=== PATIENT | male | born 1970 | race Caucasian/White ===

== ENCOUNTER 2018-01-01 17:49 | Observation (INO) | payer OTHER, SELFPAY ==
[2018-01-01 18:46] LABS: #Eosinphils 0.1 thou/uL (0.0-0.7); #Lymphocytes 2.3 thou/uL (1.20-3.40); #Monocytes 0.8 thou/uL (0.11-0.59); #Neutrophils 7.8 thou/uL (1.40-6.50); %Basophils 0.3 % (0.0-1.0); %Eosinophils 0.7 % (0.0-10.0); %Monocytes 7.3 % (0.0-10.0); %Neutrophils 70.8 % (42.0-75.0); Hemoglobin 15.4 g/dL (14.0-18.0); Mean Corpuscular HGB CONC 33.7 g/dL (32.0-36.0); Mean Corpuscular Hemoglobin 31.1 pg (27.0-31.0); Mean Corpuscular Volume 92.3 fL (78.0-98.0); Platelet Count 160 thou/uL (130-400); Red Blood Cell (RBC) Count 4.95 mill/uL (4.70-6.10)
[2018-01-01 19:14] LABS: ALT (SGPT) 23 U/L (8-55); AST (SGOT) 16 U/L (5-34); Alkaline Phosphatase 76 U/L (40-150); Anion Gap 12 mmol/L (10-20); BUN (Urea Nitrogen) 8 mg/dL (8.9-20.6); Bilirubin, Total 0.6 mg/dL (0.2-1.2); CK (CPK) 120 U/L (30-200); Calc. Creatinine Clearance 0 mL/min (70-130); Calcium 9.2 mg/dL (7.8-10.44); Carbon Dioxide 22 mmol/L (22-29); Chloride 109 mmol/L (98-107); Estimated GFR-MDRD 90; Glucose 93 mg/dL (70-105); Lipase 12 U/L (8-78); Potassium 4.1 mmol/L (3.5-5.1); Sodium 139 mmol/L (136-145)
[2018-01-01 19:19] LABS: CKMB 0.9 ng/mL (0-6.6); Troponin I Less than 0.010 ng/mL (< 0.028)
--- NOTE | 2018-01-01 19:31 | RAD ---
AP VIEW OF THE CHEST: 01/01/18 INDICATION: Chest pain. COMPARISON: Prior exam dated 02/14/16. FINDINGS: Since the comparison examination there has been interval placement of an AICD. Cardiomegaly is stable . Lungs are clear. No pleural effusion or pneumothorax evident. No acute osseous abnormality is evide nt. IMPRESSION: 1. New AICD. 2. Stable cardiomegaly. POS: BH
[2018-01-01] MEDS ORDERED: HYDROcodone/Acetaminophen 5/325 mg Tablet ONE (19:33)
[2018-01-01 22:44] LABS: Troponin I Less than 0.010 ng/mL (< 0.028)
[2018-01-02] MEDS ORDERED: HYDROcodone/Acetaminophen 5/325 mg Tablet PO PRN (00:39)
[2018-01-02] MEDS ORDERED: Acetaminophen 325 MG TAB PO PRN ×2 (00:39→00:42)
[2018-01-02] MEDS ORDERED: Ondansetron ODT 4 MG TAB SL PRN (00:39)
[2018-01-02] MEDS ORDERED: Ondansetron HCl/PF 4 MG/2 ML Vial IVP PRN (00:39)
[2018-01-02] MEDS ORDERED: Milk Of Magnesia 30 ML UDCUP PO PRN (00:42)
[2018-01-02] MEDS ORDERED: hydrALAZINE 20 MG/ML VIAL SLOW IVP PRN (00:42)
[2018-01-02] MEDS ORDERED: Mag-Al 1200 mg/1200 mg/30 ML UDCUP PO PRN (00:42)
[2018-01-02 01:55] LABS: Troponin I 0.011 ng/mL (< 0.028)
[2018-01-02 01:59] VITALS: BMI 32.2
--- NOTE | 2018-01-02 04:27 | HP ---
PRIMARY CARE PHYSICIAN: Dr. Kuo. CHIEF COMPLAINT: Chest pain. HISTORY OF PRESENT ILLNESS: Mr. Hanks is a pleasant 47-year-old gentleman who has a history of c oronary artery disease, hypertension, and COPD. He was in his usual state of health until earlier to day. He says that he had been off his medications for close to a month now and he says that he start ed feeling a bit bad and so he decided better go ahead and take my medications. He says he took ever ything and then his chest started hurting shortly afterwards. He was not doing anything in particula r during this time, but says he had a pressure in the center of his chest that went down to his waist and into his abdomen as well as into his left arm. He also felt a bit dizzy and lightheaded. He ca lled the EMS and they came out to evaluate him and asked him if he could get onto the stretcher, he s aid he started to feel lightheaded and when he got onto the gurney and then once he sat down, he leslye giseles he passed out. They said his eyes rolled back into the back of his head and he says he does not remember any of this. He also felt a little bit nauseated, but otherwise no other complaints other than feeling a bit lightheaded and noticing some leg swelling over the past few months. Again, he ad mits not taking his medicines since 12/04. He says he basically forgot, but then started feeling b hema and decided not to take any more until just today. He also says he believes that his AICD may have been activated, but he is not very sure about this. The patient also denies any PND or orthopne a. REVIEW OF SYSTEMS: The review of all systems were reviewed and negative except as mentioned in the h istory of present illness. PAST MEDICAL HISTORY: Significant for coronary artery disease, C-spine disease, hypertension, COPD. PAST SURGICAL HISTORY: He has had a stent to the LAD back in 2016 as well as an AICD placed. ALLERGIES: No known drug allergies. SOCIAL HISTORY: He is , has 6 children. He smokes about 3 cigarettes a day. Denies any alco hol use. FAMILY HISTORY: Significant for cancer and heart disease. CURRENT MEDICATIONS: Include sertraline 100 mg 1-1/2 tablet daily, topiramate 200 mg 1/2 tablet kyung y, Lipitor 20 mg 1/2 tablet at bedtime, carvedilol 3.125 mg twice a day, lisinopril 5 mg daily, Plavi x 75 mg daily, furosemide 20 mg a day. PHYSICAL EXAMINATION: GENERAL: He is alert and oriented. He appears to be in no acute distress. VITAL SIGNS: Stable. Blood pressure was 111/77, heart rate 75, respiratory rate of 18, temperature is 98.5. HEENT: Pupils are equal, round, and reactive. Extraocular muscles are intact. Sclerae are anicteri c. Throat: No erythema, no exudates. NECK: No adenopathy, no bruits. LUNGS: Clear to auscultation. There is no wheezing, no rales. CARDIOVASCULAR: He has a normal S1, S2. I did not appreciate an S3 or S4. No murmurs, clicks, or r ubs. ABDOMEN: Soft, it is obese, it is nontender, nondistended. Positive for bowel sounds. There is no organomegaly. EXTREMITIES: He has got trace ankle edema. There is no calf tenderness. No warmth. He has got goo d dorsalis pedis pulses. NEUROLOGIC: The exam is grossly nonfocal with intact muscle strength throughout. SKIN AND INTEGUMENT: No skin changes. No rash. LABORATORY RESULTS: Sodium 139, potassium 4.1, chloride is 109, CO2 is 22, BUN of 8, creatinine 0.9, glucose is 93. White blood cell count is 11, hemoglobin 15.4, hematocrit is 45.7, platelet count is 160,000. X-RAY FINDINGS: On his EKG, it is sinus rhythm, the rate is 77. He had a Q-wave in V1 and aVL, poor R-wave progression in V1 through V3. ASSESSMENT AND PLAN: 1. This is a pleasant 47-year-old gentleman who presents to the emergency room with chest pain. The pain is different from his previous anginal equivalent. He says when he had his heart attack back i 2015, he actually did not have pain, but felt extremely angry. However, he has been off his medica tions. He continues to smoke and therefore is at risk. He will be placed in observation. We will c madi to trend his cardiac enzymes, place him on aspirin and nitrates and order a nuclear stress te st. We will also consult Cardiology since he has not seen a milk wagon driver in quite some time. 2. Chronic systolic heart failure. The patient has a history of heart failure with an automated imp lantable cardioverter defibrillator. He had an echo in 2015 with an EF of 20-25%. He appears to be clinically compensated. We will continue his usual medications and will also repeat an echo to asses s where his EF is at this time. 3. Hypertension. Blood pressure appears to be well controlled. We will continue his usual medicati ons including the lisinopril and carvedilol and further recommendations are to follow.
[2018-01-02 05:03] LABS: #Eosinphils 0.1 thou/uL (0.0-0.7); #Lymphocytes 3.6 thou/uL (1.20-3.40); #Monocytes 0.8 thou/uL (0.11-0.59); %Basophils 0.4 % (0.0-1.0); %Eosinophils 1.7 % (0.0-10.0); %Lymphocytes 41.5 % (21.0-51.0); %Monocytes 9.7 % (0.0-10.0); %Neutrophils 46.6 % (42.0-75.0); Hemoglobin 14.1 g/dL (14.0-18.0); Mean Corpuscular HGB CONC 33.9 g/dL (32.0-36.0); Mean Corpuscular Hemoglobin 31.2 pg (27.0-31.0); Mean Corpuscular Volume 91.9 fL (78.0-98.0); Mean Platelet Volume 8.3 fL (7.4-10.4); Platelet Count 164 thou/uL (130-400); Red Blood Cell (RBC) Count 4.51 mill/uL (4.70-6.10); White Blood Cell (WBC) Count 8.6 thou/uL (4.8-10.8)
[2018-01-02 05:16] LABS: Anion Gap 8 mmol/L (10-20); BUN (Urea Nitrogen) 12 mg/dL (8.9-20.6); Calc. Creatinine Clearance 152 mL/min (70-130); Calcium 8.9 mg/dL (7.8-10.44); Carbon Dioxide 24 mmol/L (22-29); Cardiac Risk 4.2 (Less than 4.5); Chloride 109 mmol/L (98-107); Cholesterol 110 mg/dl (< 200 Desired); Estimated GFR-MDRD Greater than 90; Glucose 100 mg/dL (70-105); HDL Cholesterol 26 mg/dL (>60 Neg Risk); LDL Cholesterol, Calculated 64 mg/dL; Potassium 3.9 mmol/L (3.5-5.1); Sodium 137 mmol/L (136-145); Triglycerides 100 mg/dL (Less than 150)
[2018-01-02] MEDS ORDERED: Nitroglycerin 2% Ointment 1 INCH/1 GM Packet TOP SCH (06:00)
[2018-01-02] MEDS ORDERED: Regadenoson 0.4 MG/5 ML SYRINGE ONE (07:44)
[2018-01-02] MEDS: Topiramate 100 MG TAB PO SCH (11:16)
[2018-01-02] MEDS: Clopidogrel Bisulfate 75 MG TAB PO SCH (11:16)
[2018-01-02] MEDS: Aspirin 325 MG TAB PO SCH (11:16)
--- NOTE | 2018-01-02 11:49 | NM ---
NUCLEAR MEDICINE MYOCARDIAL PERFUSION STUDY: Date: 01/02/18 COMPARISON: None. HISTORY: Chest pain. TECHNIQUE: SPECT imaging of the left ventricular myocardium is obtained during rest and stress following the int ravenous administration of 30.0 and 10.1 mCi technetium-99m labeled sestamibi, respectively. FINDINGS: There is prominent diffuse global hypokinesis of the left ventricle. TID is 1.04. EDV is 212 mL. ESV is 141 mL. Left ventricular ejection fraction is 34%. There are extensive fixed perfusion defects inv olving the distal aspect of the septum, the distal aspect of the anterior wall, and the cardiac apex, suggesting extensive prior infarction. No discrete reversible defect seen. IMPRESSION: Extensive prior infarction with global hypokinesis and left ventricular ejection fraction estimated a t 34%. No reversible defect seen. POS: KANU
[2018-01-02] MEDS: HYDROcodone/Acetaminophen 5/325 mg Tablet PO PRN ×2 (11:56→21:18)
--- NOTE | 2018-01-02 16:50 | CON ---
DATE OF CONSULTATION: 01/02/2018 HISTORY OF PRESENT ILLNESS: The patient is a 47-year-old gentleman with a history of cardiomyopathy who presented with chest pain after losing consciousness. The patient has a previous history of an ischemic cardiomyopathy. He suffered a myocardial infarction. In 2016, he underwent a cardiac catheterization and found to have severe disease in the LAD. He has subsequently underwent PTCA and stent placement into the mid LAD. The patient is found to have developed a marked decrease in left systolic function. He subsequently had placement of automatic implantable cardiac defibrillator. The patient has subsequently been treated with an PHYLLIS inhibitor therapy and Coreg. The patient has had difficulty with hypotension. He states that two weeks ago, that he stopped taking medication because he felt poorly. The patient discontinued all of his medications. He states that yesterday he decided that he would restart taking all his medications. Shortly within an hour, the patient became lightheaded and subsequently lost consciousness. He also reported substernal chest discomfort. The patient denies have any present chest discomfort or dyspnea. PAST MEDICAL HISTORY: 1. Coronary artery disease. 2. Cardiomyopathy. 3. Hypertension. 4. Dyslipidemia. PAST SURGICAL HISTORY: He has had AICD placement. SOCIAL HISTORY: Long history of tobacco abuse. ALLERGIES: None. MEDICATIONS: See nursing list, not taking regularly. REVIEW OF SYSTEMS: Ten point review of systems noticeable for anxiety. PHYSICAL EXAMINATION: GENERAL: Anxious gentleman in no acute distress. VITAL SIGNS: Blood pressure 116/65. NECK: No jugular venous distention. LUNGS: Clear to auscultation. HEART: Regular rate and rhythm, normal S1, S2, no murmurs. ABDOMEN: Nondistended. EXTREMITIES: Showed no edema. SKIN: Warm and dry. LABORATORY DATA AND IMAGING DATA: White blood count 8.6, hemoglobin 14.1, hematocrit 41.4 and his platelets were 164. Sodium 137, potassium 3.9, chloride 99, bicarbonate 24, BUN 12, creatinine is 0.84, troponin less than 0.01. His EKG revealed him to have normal sinus rhythm with Q-waves suggestive of previous anterior infarct. His Cardiolite stress test revealed moderate decreased left ventricular ejection fraction of 34% with anterior scar and no evidence of ischemia. IMPRESSION: 1. Syncope, probably due to hypotension. 2. Ischemic cardiomyopathy. 3. History of myocardial infarction. 4. History of noncompliance. This gentleman presented after losing consciousness after restarting his cardiac medications. At this time, would switch the patient's Entresto if he can tolerate this medication. Would recommend this as a long-term medication. We will follow this patient with you through his hospitalization. RINA
--- NOTE | 2018-01-02 17:48 | PDOC.PN ---
- Subjective Encounter Start Date: 01/02/18 Encounter Start Time: 18:06 Pt seen for followup re: chest pain. Reports chest pain is better. No nausea or vomiting. - Objective Resuscitation Status: Resuscitation Status FULL:Full Resuscitation Vital Signs & Weight: Vital Signs (12 hours) Temp Pulse Resp BP Pulse Ox 01/02/18 16:18 97.7 F 70 20 99/56 L 94 L 01/02/18 12:00 97.7 F 73 20 116/65 98 01/02/18 07:39 97.9 F 76 20 01/02/18 07:34 97.4 F L 64 20 95/53 L 97 Weight Weight 218 lb 6.4 oz I&O: 01/01/18 01/02/18 01/03/18 06:59 06:59 06:59 Intake Total 250 900 Balance 250 900 Result Diagrams: 01/02/18 04:24 01/02/18 04:24 Phys Exam - Physical Examination Obese HEENT: moist MMs, sclera anicteric, oral pharynx no lesions, 2+ tonsils Neck: no nodes, no JVD, supple, full ROM Respiratory: no wheezing, no rales, no rhonchi, clear to auscultation bilateral Cardiovascular: RRR, no rub S1, s2 Gastrointestinal: soft, non-tender, no distention, positive bowel sounds Musculoskeletal: no edema Neurological: moves all 4 limbs Psychiatric: normal affect, A&O x 3 Dx/Plan (1) Chest pain Code(s): R07.9 - CHEST PAIN, UNSPECIFIED Status: Acute Comment: Improved (2) CAD (coronary artery disease) Code(s): I25.10 - ATHSCL HEART DISEASE OF [place] CORONARY ARTERY W/O ANG PCTRS Status: Chronic Comment: stress test normal (3) CHF (congestive heart failure) Code(s): I50.9 - HEART FAILURE, UNSPECIFIED Status: Chronic Qualifiers: Qualified Code(s): I50.23 - Acute on chronic systolic (congestive) heart failure Comment: continue furosemide (4) Ischemic cardiomyopathy Code(s): I25.5 - ISCHEMIC CARDIOMYOPATHY Status: Chronic Comment: Pt being started on Entresto (5) Syncope Code(s): R55 - SYNCOPE AND COLLAPSE Status: Resolved - Plan * . Review of Systems - Review of Systems Constitutional: negative: fever, chills, sweats, weakness, malaise Respiratory: negative: Cough, Shortness of Breath, SOB with Excertion, Pleuritic Pain, Wheezing Cardiovascular: chest pain. negative: palpitations, orthopnea, paroxysmal nocturnal dyspnea, edema, light headedness Gastrointestinal: negative: Nausea, Vomiting, Abdominal Pain, Diarrhea, Constipation, Melena, Hematochezia Genitourinary: negative: Dysuria, Frequency, Incontinence, Hematuria, Retention Skin: negative: Rash, Lesions, Dwaine, Bruising - Medications/Allergies Allergies/Adverse Reactions: Allergies Allergy/AdvReac Type Severity Reaction Status Date / Time No Known Allergies Allergy Verified 02/12/16 20:50 Medications: Current Medications Acetaminophen (Tylenol) 650 mg PO Q4H PRN PRN Reason: Headache/Fever or Pain Last Admin: 01/02/18 16:59 Dose: 650 mg Acetaminophen (Tylenol) 650 mg PO Q4H PRN PRN Reason: Headache/Fever or Pain Last Admin: 01/02/18 04:48 Dose: 650 mg Hydrocodone Bitart/Acetaminophen (Ogema 5/325) 1 tab PO Q6H PRN PRN Reason: Mild-Moderate Pain (1-5) Last Admin: 01/02/18 11:56 Dose: 1 tab Hydrocodone Bitart/Acetaminophen (Ogema 5/325) 2 tab PO Q6H PRN PRN Reason: Moderate to Severe Pain (6-10) Last Admin: 01/02/18 01:09 Dose: 2 tab Al Hydroxide/Mg Hydroxide (Maalox) 30 ml PO Q6H PRN PRN Reason: Heartburn or Indigestion Aspirin (Aspirin) 325 mg PO [facility] Last Admin: 01/02/18 11:16 Dose: 325 mg Clopidogrel Bisulfate (Plavix) 75 mg PO [facility] Last Admin: 01/02/18 11:16 Dose: 75 mg Hydralazine HCl (Apresoline) 10 mg SLOW IVP Q4H PRN PRN Reason: Systolic BP > 180 Magnesium Hydroxide (Milk Of Magnesium) 30 ml PO DAILYPRN PRN PRN Reason: Constipation Ondansetron HCl (Zofran) 4 mg IVP Q6H PRN PRN Reason: Nausea/Vomiting Ondansetron HCl (Zofran Odt) 4 mg SL Q6H PRN PRN Reason: Nausea/Vomiting Last Admin: 01/02/18 11:57 Dose: 4 mg Rosuvastatin Calcium (Crestor) 10 mg PO HS [facility] Sacubitril/Valsartan (Entresto 24.5 Mg-25.5 Mg Tablet) 1 tab PO BID [facility] Sodium Chloride (Flush - Normal Saline) 10 ml IVF Q12HR [facility] Last Admin: 01/02/18 11:03 Dose: Not Given Sodium Chloride (Flush - Normal Saline) 10 ml IVF PRN PRN PRN Reason: Saline Flush Topiramate (Topamax) 100 mg PO DAILY [facility] Last Admin: 01/02/18 11:16 Dose: 100 mg
[2018-01-02] MEDS ORDERED: Rosuvastatin 10 MG TAB PO SCH (21:00)
[2018-01-02] MEDS ORDERED: Sacubitril 24.5 MG/Valsartan 25.5 MG TABLET PO SCH (21:00)
[2018-01-03] MEDS ORDERED: Sacubitril 24.5 MG/Valsartan 25.5 MG TABLET PO SCH (09:00)
[2018-01-03] MEDS ORDERED: Furosemide 20 MG TAB PO SCH (09:00)
[2018-01-03] MEDS: Clopidogrel Bisulfate 75 MG TAB PO SCH (09:40)
[2018-01-03] MEDS: Aspirin 325 MG TAB PO SCH (09:40)
[2018-01-03] MEDS: Topiramate 100 MG TAB PO SCH (09:41)
--- NOTE | 2018-01-03 09:44 | PDOC.CTH ---
Cardiology Progress Note - Subjective The pt seen and examined. No overnight events. No cardiac complaints. He denied dizziness or lightheadedness. - Objective Vital Signs Temp Pulse Resp BP BP Pulse Ox 01/03/18 08:20 97.4 F L 66 16 01/03/18 07:51 97.4 F L 66 16 81/51 L 96 01/03/18 03:48 97.9 F 61 20 87/54 L 94 L Weight 217 lb 9.6 oz 01/02/18 01/03/18 01/04/18 06:59 06:59 06:59 Intake Total 250 1385 Balance 250 1385 - Physical Examination General/Neuro: alert & oriented x3 Neck: no JVD present Lungs: CTA Heart: RRR Abdomen: soft Extremities: other: (No edema) - Telemetry Telemetry Rhythm: SR - Labs Result Diagrams: 01/02/18 04:24 01/02/18 04:24 Troponin/CKMB CK-MB (CK-2) 0.9 ng/mL (0-6.6) 01/01/18 18:39 Troponin I 0.011 ng/mL (< 0.028) 01/02/18 00:59 - Assessment/Plan 1. Sycopal episode possible 2/2 hypotension - stable; his orthostatic BP was stable; 2. Chronic systolic HF - stress test yesterday showed no reversible ischemia with EF 34%; Start Entresto 24/25mg BID from this AM. if BP is not stable, hold Lasix for now. 3. Ischemic CMY with hx of AICD placement - 4. CAD wtih hx of stent in LAD in 2016 - stress test on 01/02/18 showed no reversible ischemia with EF 34%. On Plavix and ASA; not on BBlocker due to Hypotension 5. Tobacco abuse - cont. dipping. Tobacco cessation education given to the pt. MAR reviewed <addendum> * Per nurse, the pt's BP is stable with Entresto 24/25mg. Cont. to hold Lasix for now until he f/u with his PCP or Membership Secretary within 1-2wks. * From Cardiac standpoint, the pt is stable to d/c home. The pt will f/u with his PCP/Membership Secretary within 1-2 wks. Review of Systems - Review of Systems Constitutional: reports: no symptoms reported EENTM: reports: no symptoms reported Respiratory: reports: no symptoms reported Cardiac (ROS): reports: no symptoms reported ABD/GI: reports: no symptoms reported : reports: no symptoms reported Musculoskeletal: reports: no symptoms reported
[2018-01-03] MEDS: HYDROcodone/Acetaminophen 5/325 mg Tablet PO PRN (12:00)
[2018-01-03 15:48] VITALS: BP 93/51; TEMP 98.5
--- NOTE | 2018-01-04 09:02 | DIS ---
DATE OF ADMISSION: 01/01/2018 DATE OF DISCHARGE: 01/03/2018 PRIMARY CARE PHYSICIAN: Dr. Chikis Kuo. DISCHARGE DIAGNOSES: 1. Syncope. 2. Ischemic cardiomyopathy. CONDITION OF PATIENT ON THE DAY OF DISCHARGE: Stable. I assessed Mr. Hanks on the day of discha rge. He denies any chest pain or shortness of breath. He denies any lightheadedness. PHYSICAL EXAMINATION: VITAL SIGNS: Vital signs are stable, blood pressure is 93/51. CARDIOVASCULAR: S1 and S2 are heard, regular. LUNGS: Clear to auscultation bilaterally. DISCHARGE MEDICATIONS: Aspirin 325 mg daily, Lipitor 10 mg daily, Plavix 75 mg daily, Entresto 24.5/ 25.5 mg b.i.d., sertraline 150 mg daily, topiramate 100 mg daily, Coenzyme Q10 of 100 mg daily. CONSULTATIONS DURING THIS HOSPITALIZATION: Cardiology, Dr. Macedo. HOSPITAL COURSE: Mr. Hanks is a pleasant 47-year-old gentleman who was admitted to [facility] on 01/01/2018 following a syncopal episode, most likely from hypotension. He erwin d a nuclear stress test, which showed extensive prior infarction with global hypokinesis and left [place] tricular ejection fraction estimated at 34%. There was no reversible defect. He was seen by Cardiol ogy Service. Lisinopril was discontinued and he is being started on Entresto. His blood pressure wa s in the high 80s to 90s systolic. His furosemide was stopped. He is not on beta-melissa, because o f low blood pressure. He has been cleared for discharge by Cardiology Service. He will follow up [facility] Cardiology Service as outpatient. Many thanks for allowing me to participate in your patient's care. Please feel free to contact me [facility] any questions or concerns. During this hospitalization, he had triglycerides 100, cholesterol 110, LDL cholesterol 64, and HDL c holesterol 26. DISCHARGE DESTINATION: Home.
--- NOTE | 2018-01-04 11:04 | STRESS ---
Acquisition Time: 2018-01-02 10:01:26 Total Exercise Time: 00:01:00 Test Indications: CHEST PAIN Medications: Protocol: LEXISCAN Max HR: 085 BPM 48% of Pred: 174 BPM Max BP: 094/060 mmHG Max Work Load: 1.0 METS RESTING ECG: NORMAL SINUS RHYTHM AT 60 BPM WITH LEFT AXIS DEVIATION, NON-SPECIFIC ST SEGMENT AND T-WAVE CHANGES; OLD SEPTAL ID SYMPTOMS: DYSPNEA NORMAL BP RESPONSE ECTOPY: NONE ECG STRESS: NO SIGNIFICANT CHANGES INTERPRETATION: INDETERMINATE ECG/AWAIT NUCLEAR IMAGES FOR DEFINITIVE DIAGNOSIS Confirmed by ANDREWS FREED ([id number]) on 01/04/2018 11:04:43 AM Referred By: MD Aiden LIMON Confirmed By:ANDREWS FREED
== END 2018-01-03 17:28 | disposition home or self-care (01) ==
LOC: ERS 17:49 → ERHOLD 23:43 → 2SW 01-02 00:36
PROVIDERS: ADMIT Internal Medicine; ATTEND Internal Medicine
DX: R55 Syncope and collapse (principal); I25.5 Ischemic cardiomyopathy; I11.0 Hypertensive heart disease with heart failure; I50.22 Chronic systolic (congestive) heart failure; E78.5 Hyperlipidemia, unspecified; I25.10 Atherosclerotic heart disease of native coronary artery without angina pectoris; I25.2 Old myocardial infarction; F17.200 Nicotine dependence, unspecified, uncomplicated; Z79.82 Long term (current) use of aspirin; Z79.02 Long term (current) use of antithrombotics/antiplatelets; Z79.899 Other long term (current) drug therapy
CPT/HCPCS: 36415; 71045; 78452; 80048; 80053; 80061; 82553; 83690; 84484; 85025; 85379; 93005; 93017; 93306; 94760; A4216; A9500; G0378; J2785; Q0162

== ENCOUNTER 2018-09-24 12:55 | Emergency (ER) | payer MEDICARE ==
[2018-09-24] MEDS ORDERED: HYDROcodone/Acetaminophen 5/325 mg Tablet ONE (13:36)
--- NOTE | 2018-09-24 14:04 | RAD ---
FEXAM:PA chest and right RIBS 4 views HISTORY: Rib pain. COMPARISON: None FINDINGS:Heart size slightly enlarged with a pacemaker present. The lungs are clear of infiltrates. T here are no pleural effusions or signs of pneumothorax. No rib fractures are identified. IMPRESSION:No acute findings.
== END 2018-09-24 15:01 | disposition home or self-care (01) ==
LOC: ERS 12:55
DX: M54.42 Lumbago with sciatica, left side (principal); Z86.73 Personal history of transient ischemic attack (TIA), and cerebral infarction without residual deficits; I50.9 Heart failure, unspecified; J44.9 Chronic obstructive pulmonary disease, unspecified; I25.2 Old myocardial infarction; F43.10 Post-traumatic stress disorder, unspecified; F17.220 Nicotine dependence, chewing tobacco, uncomplicated; Z79.899 Other long term (current) drug therapy; W17.89XA Other fall from one level to another, initial encounter

== ENCOUNTER 2020-07-18 17:48 | Emergency (ER) | payer OTHER ==
--- NOTE | 2020-07-18 20:01 | CT ---
CT NECK WITHOUT CONTRAST: 07/18/20 INDICATIONS: Question foreign body right throat. FINDINGS: Exam is limited due lack of IV contrast. Parotid glands and submandibular glands appear symmetric. Thyroid unremarkable. Nasopharynx unremarkable. Oropharynx and Waldeyer's ring appear symmetric. The palatine tonsils are mildly prominent. Review of the hypopharynx reveals a focal calcific density in the region of the vallecula to the left of midline measuring in the 3 mm range. This could represent a foreign body and should be further ev aluated with direct visualization. The piriform sinuses are symmetric. Larynx unremarkable. Review of the lymph nodes reveal increased number and size of cervical lymph nodes at all cervical le vels. The paranasal sinuses and mastoids are well aerated. There is a mucous retention cyst in the floor of the left maxillary sinus. There are degenerative changes in the cervical spine with spondylosis at multiple levels and anterior spurring. IMPRESSION: 1. There is a calcific density in the hypopharynx in the region of the vallecula to the left of midline. This could represent a lodged foreign body. Recommend direct evaluation with ENT consultatio n. 2. Nonspecific cervical adenopathy with increased number and size of lymph nodes at all cervical levels. Recommend ENT consultation. POS: ROLY
== END 2020-07-18 20:13 | disposition home or self-care (01) ==
LOC: ERS 17:48
DX: T17.208A Unspecified foreign body in pharynx causing other injury, initial encounter (principal); I50.9 Heart failure, unspecified; J43.9 Emphysema, unspecified; I25.2 Old myocardial infarction; Z86.73 Personal history of transient ischemic attack (TIA), and cerebral infarction without residual deficits; F17.210 Nicotine dependence, cigarettes, uncomplicated; F17.220 Nicotine dependence, chewing tobacco, uncomplicated; F17.290 Nicotine dependence, other tobacco product, uncomplicated; Z79.899 Other long term (current) drug therapy
CPT/HCPCS: 70490

== ENCOUNTER 2022-01-17 12:41 | Outpatient (CLI) | payer OTHER | END 2022-01-17 12:42 | disposition home or self-care (01) | LOC: CT 12:41 | DX: Z12.2 Encounter for screening for malignant neoplasm of respiratory organs (principal); F17.201 Nicotine dependence, unspecified, in remission | CPT/HCPCS: 71271 ==